=== PATIENT | male | born 1945 | race Hispanic/Latino ===

== ENCOUNTER 2022-05-14 20:27 | Observation (INO) | payer OTHER ==
--- OUTSIDE RECORDS SUMMARY | 2022-05-14 20:32 | XMS REPORT | Continuity of Care Document ---
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 22:43:30 113.399 kg Universi [facility] BMI 2019-11-17 22:43:30 35.87 kg/m2 [facility] Procedures Procedure Date / Time Performing Clinician Source Performed COVID-19 (ID NOW RAPID 2021-09-03 18:50:00 Drew Tovar [facility] TESTING) Medical Branch CONSENT/REFUSAL FOR 2021-09-03 17:16:42 Doctor Unassigned, No [facility] [place] [facility] Name [facility] Branch CONSENT/REFUSAL FOR 2021-01-03 15:00:34 Doctor Unassigned, No [facility] [place] [facility] Name [facility] EXTERNAL PROVIDER - ADC 2020-11-23 05:01:00 Doctor Unassigned, N o [facility] REFERRAL Name [facility] URINALYSIS 2019-11-18 00:09:00 Chintan Vargas o [facility] CT HEAD WO CONTRAST 2019-11-17 23:19:20 Chintan Vargas [facility] XR FEMUR 2 VW RIGHT 2019-11-17 23:09:59 Chintan Vargas [facility] XR HIPS 2 VW RIGHT 2019-11-17 23:09:59 Chintan Vargas y [facility] HB ABO GROUPING 2019-11-17 22:58:00 Chintan Vargas o f [facility] COMP. METABOLIC PANEL 2019-11-17 22:55:00 Chintan Vargas [facility] ([id number]) [facility] CBC WITH DIFFERENTIAL 2019-11-17 22:55:00 Chintan Vargas [facility] Encounters Start End Encounter Admission Attending Care Care Encounter Source Date/Time Date/Time Type Type Clinicians Facility Department ID 2021-09-07 2021-09-07 Outpatient R CHRISTIE [facility] [id number] Univers 12:24:53 23:59:00 JOSE DAVID bates [facility] 2021-09-07 2021-09-07 [facility] BURAK Valadez [id number] Univers 12:24:53 23:59:00 Encounter Erikashahida Ennis [id number] [facility] 4.2.7.2.686 Luis as [id number] [facility] 184 Josephine 2021-09-07 2021-09-07 Outpatient R [facility] [id number] -[id number] Univers 12:30:00 12:30:00 [id number] [facility] 2021-09-03 2021-09-03 [facility] [place], BURAK [id number] Univers 12:45:00 23:59:00 Encounter Rod EBER [id number] [facility] 4.2.7.2.686 Luis as [phone] [facility] 184 [address]ine 2021-09-03 2021-09-03 Emergency [facility] [id number] Univers 11:21:00 17:24:00 [facility] 2021-09-03 2021-09-03 Emergency [facility] [id number] Univers 11:21:00 17:24:00 Drew JORGE 350.1.13.10 i [facility] 4.2.7.2.686 [facility] [id number] [facility] 084 Branch 2021-06-21 2021-06-21 Outpatient KURTIS, [facility] [id number] -[id number] Univers 10:30:00 10:30:00 SENDIL [id number] [facility] 2021-06-21 2021-06-21 [facility] [id number] Univers 10:30:00 10:30:00 [facility] 2021-02-15 2021-02-15 Office [facility] [id number] Univers 10:02:49 10:56:56 Visit Sendil Shanon Jorge [id number] [facility] [place] [phone] [place] dic[place]al [address] [place] [address] 2021-02-15 2021-02-15 Outpatient R KURTIS [facility] [id number] -[id number] Univers 10:30:00 10:30:00 SENDIL [id number] ity [facility] 2021-02-15 2021-02-15 Out[facility] [id number] Univers 10:30:00 10:30:00 [facility] 2021-02-10 2021-02-10 Outpatient R KURTIS [facility] [id number] -[id number] Univers 14:00:00 14:00:00 SENDIL [id number] ity [facility] 2021-02-10 2021-02-10 Outpatient [facility] [id number] Univers 14:00:00 14:00:00 SENDIL ity [facility] 2021-01-12 2021-01-12 Outpatient R [facility] [id number] -[id number] Univers 08:00:00 08:00:00 SENDIL [id number] ity [facility] 2021-01-12 2021-01-12 Outpatient R [facility] [id number] Univers 08:00:00 08:00:00 [facility] 2021-01-03 2021-01-03 Office [facility] [id number] Univers 10:00:51 11:17:43 Visit Sendil Shanon Jorge [id number] [facility] [phone] Mn dical nal 9 [facility] 2021-01-03 2021-01-03 Outpatient R KURTIS [facility] [id number] -[id number] Univers 10:30:00 10:30:00 SENDIL [id number] ity [facility] 2021-01-03 2021-01-03 Outpatient R HULL [facility] [id number] Univers 10:30:00 10:30:00 SENDIL ity [facility] 2021-01-03 2021-01-03 Orders Doctor MELANY [id number] Univers 00:00:00 00:00:00 Only Unassigned, EBER [id number] [facility] [place] [facility] 4.2.7.2.686 Luis as [phone] [address] 2020-11-23 2020-11-23 Orders Doctor MELANY [id number] Univers 00:00:00 00:00:00 Only Unassigned, EBER 350.1.13.10 ity of [place] [facility] 4.2.7.2.686 Luis as [phone] [address] 2020-04-14 2020-04-14 Outpatient COH COH PDPFEIZ YQR COH 00:00:00 00:00:[id number] [facility] 2019-11-17 2019-11-17 Emergency X SINGER [facility] ERT [id number] Univers 17:38:39 20:20:00 CHINTAN bates [facility] 2019-11-17 2019-11-17 Emergency Jagdish Leija [facility] 1.2. [id number] Univers 17:38:39 20:20:00 Chintan Vargas 350.1.13.10 ity [facility] 4.2.7.2.686 [facility] [id number] [address] 2019-11-17 2019-11-17 Emergency Jagdish Leija [facility] 1.2. [id number] 17:38:39 20:20:00 Chintan Vargas 350.1.13.10 [place] 4.2.7.2.686 [place] [id number] [id number] Results Test Description Test Time Test Comments Results Result Comments Source HEMOGLOBIN A1c 2021-10-21 11:06:59 Test Item Value Reference Range Interpretation Comme nts HEMOGLOBIN A1c (test code = 54891) 5.4 % 4.2-5.6 CBC W/AUTO DIFF WITH [id number] 10:23:26 Test Item Value Reference Range Interpretation Comments WBC (test code = 12.9 K/UL 3.5-11.0 H 1001) RBC (test code = 4.23 M/UL 4.50-6.10 L 1002) HEMOGLOBIN (test code 13.1 G/DL 13.5-17.0 L = 1003) HEMATOCRIT (test code 38.0 % 40.0-51.0 L = 1004) MCV (test code = 89.8 fL 80.0-99.0 1005) MCH (test code = 31.0 PG 25.0-33.0 1006) MCHC (test code = 34.5 G/DL 31.0-36.0 1007) RDW (test code = 13.4 % 11.5-15.0 1038) NEUTROPHILS (test 68.0 % code = 1008) LYMPHOCYTES (test 23.6 % code = 1010) MONOCYTES (test code 5.6 % = 1011) EOSINOPHILS (test 1.8 % code = 1012) BASOPHILS (test code 0.5 % = 1013) IMMATURE GRANULOCYTES 0.5 % (test code = 1036) NUCLEATED RBCS (test 0.0 /100 WBC'S See_Comment [Aut omated code = 1065) message] The sy stem which generated this result transmitted reference range : 0.0. The refere nce range was not u sed to interpret th is result as normal/abnormal . PLATELET COUNT (test 253 K/UL 130-400 code = 1015) ABSOLUTE NEUTROPHILS 8.81 K/UL 1.50-7.50 H (test code = 1066) ABSOLUTE LYMPHOCYTES 3.05 K/UL 1.00-4.00 (test code = 1067) ABSOLUTE MONOCYTES 0.73 K/UL 0.20-1.00 (test code = 1068) ABSOLUTE EOSINOPHILS 0.23 K/UL 0.00-0.50 (test code = 1040) ABSOLUTE BASOPHILS 0.06 K/UL 0.00-0.20 (test code = 1069) ABS IMMATURE 0.06 K/UL 0.00-0.10 GRANULOCYTES (test code = 1020) ABS NUCLEATED RBCS 0.00 K/UL 0.00-0.11 (test code = 79079) LIPID [id number] 06:45:11 Test Item Value Reference Range Interpretation Comments CHOLESTEROL (test 144 MG/DL <200 code = 2210) TRIGLYCERIDES (test 95 MG/DL <150 code = 2232) HDL CHOLESTEROL (test 48 MG/DL >39 code = 2220) CALC LDL CHOL (test 78 MG/DL <100 NOTE: C ALCULATED LDL code = 2237) IS BASED ON EDWIGE-MORALES METHOD WHICHINCLUDES ADJUSTABLE TRIGLYCERIDE:VL DL CHOLESTEROL RAT IO.THIS FACTOR VARIES B Y MEASURED TRIGLY CERIDE AND NON-HDLCHOL ESTEROL CONCENTRATIONS WITH INCREASED CALCU LATED LDL SEENIN HIGH ER TRIGLYCERIDE OR LOWER NON-HDL SPECIME NS. FOR MOREINFORMATION , SEE CLIENT ANNOUNCE MENT AT [email or web address] LDL/HDL 1.63 RATIO <3.55 (test code = 2238) COMPREHENSIVE METABOLIC [id number] 06:45:11 Test Item Value Reference Range Interpretation Comments GLUCOSE (test code = 84 MG/DL 70-99 2216) BUN (test code = 7 MG/DL 8-23 L 2207) CREATININE (test 0.83 MG/DL 0.80-1.40 code = 2214) eGFR (2020 CKD-EPI) 91 >60 (test code = 95251) ML/MIN/1.73 CALC BUN/CREAT (test 8 RATIO 6-28 code = 2235) SODIUM (test code = 144 MEQ/L 315-803 8285) POTASSIUM (test code 4.2 MEQ/L 3.5-5.4 = 2227) CHLORIDE (test code 105 MEQ/L 95-107 = 221) CARBON DIOXIDE (test 27 MEQ/L 19-31 code = 2206) CALCIUM (test code = 9.2 MG/DL 8.5-10.5 2208) PROTEIN, TOTAL (test 7.0 G/DL 6.1-8.3 code = 222) ALBUMIN (test code = 4.3 G/DL 3.5-5.2 2200) CALC GLOBULIN (test 2.7 G/DL 1.9-3.7 code = 2240) CALC A/G RATIO (test 1.6 RATIO 1.0-2.6 code = 2234) BILIRUBIN, TOTAL 0.4 MG/DL See_Comment [Automated message] (test code = 2207) The syste m which generated this result transmitted ref erence range: <=1.2. T he reference range was not used to int erpret this result as normal/abnormal . ALKALINE PHOSPHATASE 89 U/L 40-125 (test code = 4) AST (test code = 17 U/L 9-50 2217) ALT (test code = 15 U/L 5-50 UNLESS OTH ERWISE 9) INDICATED, ALL TESTING PERFORM ED ATCLINICAL PATH OLOGY LABORATORIES, [facility]. [address] [place] [id number] [place] [address] DIRECTOR: DAGOBERTO SORIANO M.D. CLIA NUMBER [id number] CAP ACCREDITATION N O. [id number] SARS-CoV-2 (COVID-19), RT-PCR/[id number] 15:44:19 Test Item Value Reference Interpretation Comments Range SARS-CoV-2 POSITIVE SEE NOTE A SARS-CoV-2 RNA INTERPRETATION DETECTEDPosit ran results (test code = 39447) are kirsten cative of the presence of PRIYA S-CoV-2 RNA;clinical co rrelation with patient hi story and other diagnosticinfor mation is necessary to de termine patient infecti on status.Positive results do not rule out bacterial infection or co-infectionwit h other viruses. Positi ve and negative predic tive values oftestin g are highly dependen t on prevalence. SOURCE (test code = NOT SPECIFIED Note: [place] [address]) Antonia Augustina Alia l-Time RT-PCR. The exp ected result or refer ence range is NEGATIVE (No t Detected). For more information reg arding COVID-19 testin g to include clinicalinforma tion, methodology det ail, intended use, F DA authorization andrecommended fact sheets for nazanin ents or healthcare prov iders, see NewTest Announc ement: SARS-CoV-2 (COV ID-19) by NAAT at URL bel ow (note,fact shee ts are provided by met hod given in report:https:// [email or web address]/clinician [email or web address]/client-c ommunications/ Alternatively, see downloadable PD F fact sheet at:[email or web address]://[email or web address]. [email or web address] [email or web address] CR UNLESS OTHERWISE INDIC ATED, ALL TESTING PERFORM ED ATCLINICAL PATH OLOGY LABORATORIES, [place]. [address] [place] [address] LABORATORY DIRE CTOR: Hugh ARCEO CLIA NUMBER [id number] CAP ACCREDITATION N O. [id number] 00:58:00 Test Item Value Reference Range Interpretation Comments APPEARANCE (test code = Clear Clear 7047168344) COLOR (test code = Yellow Yellow 3264410967) PH (test code = 4.8-8.0 8802407227) SP GRAVITY (test code = 1.003-1.030 6049343147) GLU U QUAL (test code = Normal Normal 6687690738) BLOOD (test code = Negative Negative 7788176848) KETONES (test code = Negative Negative 0263777245) PROTEIN (test code = Negative Negative 2887-8) UROBILIN (test code = Normal Normal 7581967958) BILIRUBIN (test code = Negative Negative 5825617750) NITRITE (test code = Negative Negative 9849623901) LEUK CAROL (test code = Negative Negative 9124654421) RBC/HPF (test code = See_Comment [Autom ated message] 3239804756) The system [employer] generated this result transmitted ref erence range: 0 - 3 HP F. The reference range was not used to int erpret this result as normal/abnormal . WBC/HPF (test code = See_Comment [Autom ated message] 8587992729) The system [employer] generated this result transmitted ref erence range: 0 - 5 HP F. The reference range was not used to int erpret this result as normal/abnormal . BACTERIA (test code = Negative Negative 7935240336) MUCOUS (test code = Moderate Negative LPF A 9506831833) HYAL CAST (test code = See_Comment H [Aut omated message] 3232705961) The system [employer] generated this result transmitted ref erence range: <=2 LPF. The reference range was not used to int erpret this result as normal/abnormal . Lab Interpretation (test Abnormal code = 85808-7) [facility] (80025)2019-11-18 00:06:00 Test Item Value Reference Range Interpretation Comments NA (test code = 143 mmol/L 135-145 6360250425) K (test code = 4.1 mmol/L 3.5-5 1187932906) CL (test code = 107 mmol/L 98-108 5135780364) CO2 TOTAL (test code = 26 mmol/L 23-31 6625326540) AGAP (test code = 2-16 5831681565) BUN (test code = 14 mg/dL 7-23 2652528733) GLUCOSE (test code = 140 mg/dL 70-110 H 4964763025) CREATININE (test code = 0.82 mg/dL 0.6-1.25 5350814849) TOTAL BILI (test code = 0.3 mg/dL 0.1-1.5 1653460064) CALCIUM (test code = 10.2 mg/dL 8.6-10.6 1485708855) T PROTEIN (test code = 8.0 g/dL 6.3-8.2 0662375365) ALBUMIN (test code = 4.9 g/dL 3.5-5 4011430430) ALK PHOS (test code = 85 U/L 34-122 3245505980) ALTv (test code = 18 U/L 5-50 1742-6) AST(SGOT) (test code = 23 U/L 13-40 6765896544) eGFR Calculation mL/min/1.73m2 (Non-) (test code = 2664780762) eGFR Calculation mL/min/1.73m2 () (test code = 8605635021) RADHA (test code = RADHA) Association of Glomerular Filtration Rate (GFR) and Staging of Kidney Disease* + --+ --+ ------+| GFR (mL/min/1.73 m2) ?| With Kidney Damage ?| ?Without Kidney Damage+ --------+ --------+ +| ?>90 ?| ?Stage one ?| ? Normal ?+ ---+ ---+ -------+| ?60-89 ?| ?Stage two ?| ? Decreased GFR ? + --+ --+ ------+| ?30-59 ?| ?Stage three ?| ? Stage three ? + --+ --+ ------+| ?15-29 ?| ?Stage four ? | ? Stage four ?+ ---+ ---+ -------+| ?<15 (or dialysis) ? ?| ?Stage five ? | ? Stage five ?+ ---+ ---+ -------+ *Each stage assumes the associated GFR level has been in effect for at least three months. ?Stages 1 to 5, with or without kidney disease, indicate chronic kidney disease. Notes: Determination of stages one and two (with eGFR >59mL/min/1.73 m2) requires estimation of kidney damage for at least three months as defined by structural or functional abnormalities of the kidney, manifested by either:Pathological abnormalities or Markers of kidney damage (including abnormalities in the composition of the blood or urine or abnormalities in imaging tests). Lab Interpretation Abnormal (test code = 35517-9) [facility] Screen - ONCE [id number] 23:58:13 Test Item Value Reference Range Interpretation Comments ABO & RH (test code A Positive Performe d at [facility] = 20) Laboratory Serv [facility] Blood [facility]1 [address] [place], [place] [id number] Free: [phone] A No. [id number] IAT (test code = Negative Performed a t [facility] 1185) Laboratory [facility] Blood [facility]1 [address] [place], [place] [address]Toll Free: [phone] A No. [id number] [facility]way[facility] HIPS 2 VW [id number] 23:46:51No appreciable acute displaced fracture lines. RL: 6200 ICAL HISTORY:fal, trauma COMPARISON:None TECHNIQUE:2 views right hip, and 2 views right femur performed. FINDINGS:There are no appreciable fracture lines or subluxations. Gross anatomicalignment. No radiographic effusions. No periosteal reaction. No osseouserosions by radiograph. Total knee arthroplasty. [facility], Radiant Results Inft User - 11/17/2019 6:48 PM CDTCLINICAL HISTORY:fal, trauma COMPARISON:NoneTECHNIQUE:2 views right hip, and 2 views right femur performed.FINDINGS:There are no appreciable fracture lines or subluxations. Gross anatomicalignment. No radiographic effusions. No periosteal reaction. No osseouserosions by radiograph.Total knee arthroplasty.IMPRESSIONNo appreciable acute displaced fracture lines.RL: 6200 [facility] FEMUR 2 VW [id number] 23:46:51No appreciable acute displaced fracture lines. RL: 6200 ICAL HISTORY:fal, trauma COMPARISON:None TECHNIQUE:2 views right hip, and 2 views right femur performed. FINDINGS:There are no appreciable fracture lines or subluxations. Gross anatomicalignment. No radiographic effusions. No periosteal reaction. No osseouserosions by radiograph. Total knee arthroplasty. [facility], Radiant Results Inft User - 11/17/2019 6:47 PM CDTCLINICAL HISTORY:fal, trauma COMPARISON:NoneTECHNIQUE:2 views right hip, and 2 views right femur performed.FINDINGS:There are no appreciable fracture lines or subluxations. Gross anatomicalignment. No radiographic effusions. No periosteal reaction. No osseouserosions by radiograph.Total knee arthroplasty.IMPRESSIONNo appreciable acute displaced fracture lines.RL: 6200 [facility] HEAD WO [id number] 23:31:25No acute findings. HISTORY:Head trauma, minor, GCS>=13, low clinical risk, initial exam TECHNIQUE: Noncontrast head CT was performed. COMPARISON:None. FINDINGS: The ventricles and sulci are appropriate for patient's age. Multiple foci of ?low-attenuation are identified in the periventricular andsubcortical white matter, compatible with mild to moderate chronic smallvessel ischemic disease. There is no midline shift. The basal cisterns are preserved. No largevascular territory infarction, intracranial hemorrhage or mass effect isseen. The extracranial tissues demonstrate no acute findings. [facility], Radiant Results Inft User - 11/17/2019 6:32 PM CDTHISTORY:Head trauma, minor, GCS>=13, low clinical risk, initial exam TECHNIQUE: Noncontrast head CT was performed.COMPARISON:None.FINDINGS:The ventricles and sulci are appropriate for patient's age.Multiple foci of low-attenuation are identified in the periventricular andsubcortical white matter, compatible with mild to moderate chronic smallvessel ischemic disease.There is no midline shift. The basal cisterns are preserved. No largevascular territory infarction, intracranial hemorrhage or mass effect isseen.The extracranial tissues demonstrate noacute findings.IMPRESSIONNo acute findings.[facility] WITH [id number] 23:11:00 Test Item Value Reference Range Interpretation Comments WBC (test code = See_Comment H [Automated 8090-2) message] The sy stem which generated this result transmitted reference range : 4.20 - 10.70 10*3/?L. The reference range was not used to interpret this result as normal/abnormal . RBC (test code = See_Comment [Automated 789-8) message] The sy stem which generated this result transmitted reference range : 4.26 - 5.52 10*6/?L. The reference range was not used to interpret this result as normal/abnormal . HGB (test code = 14.5 g/dL 12.2-16.4 718-7) HCT (test code = 43.3 % 38.4-49.3 4544-3) MCV (test code = 91.7 fL 81.7-95.6 787-2) MCH (test code = 30.7 pg 26.1-32.7 785-6) MCHC (test code = 33.5 g/dL 31.2-35 786-4) RDW-SD (test code = 48.0 fL 38.5-51.6 02782-2) RDW-CV (test code = 14.1 % 12.1-15.4 788-0) PLT (test code = See_Comment [Automated 777-3) message] The sy stem which generated this result transmitted reference range : 150 - 328 10*3/ ?L. The reference r alison was not used to interpret this result as normal/abnormal . MPV (test code = 11.5 fL 9.8-13 68248-6) NRBC/100 WBC (test See_Comment [Automat ed code = 8903770098) message] The system which generated this result transmitted reference range : 0.0 - 10.0 /100 WBCs. The refer ence range was not u sed to interpret th is result as normal/abnormal . NRBC x10^3 (test code <0.01 See_Comment [Auto mated = 8050305678) message] The s ystem which generated this result transmitted reference range : 10*3/?L. The reference range was not used to interpret this result as normal/abnormal . GRAN MAT (NEUT) % 70.5 % (test code = 770-8) IMM GRAN % (test code 0.50 % = 6189199482) LYMPH % (test code = 19.6 % 736-9) MONO % (test code = 6.6 % 5905-5) EOS % (test code = 2.5 % 713-8) BASO % (test code = 0.3 % 706-2) GRAN MAT x10^3(ANC) 9.72 10*3/uL 1.99-6.95 H (test code = 8262301040) IMM GRAN x10^3 (test 0.07 10*3/uL 0-0.06 H code = 8904609075) LYMPH x10^3 (test code 2.71 10*3/uL 1.09-3.23 = 731-0) MONO x10^3 (test code 0.91 10*3/uL 0.36-1.02 = 742-7) EOS x10^3 (test code = 0.35 10*3/uL 0.06-0.53 711-2) BASO x10^3 (test code 0.04 10*3/uL 0.01-0.09 = 704-7) Lab Interpretation Abnormal (test code = 58933-9) [facility]wayCOMPREHENS[facility] METABOLIC [id number] 13:10:00 Test Item Value Reference Range Interpretation Comments SODIUM (test code = 139 mmol/L 136-145 N NA) POTASSIUM (test code = 4.3 mmol/L 3.5-5.1 N K) CHLORIDE (test code = 103.0 mmol/L 98-107 N CL) CARBON DIOXIDE (test 27.7 mmol/L 21-32 N code = CO2) GLUCOSE (test code = 139 mg/dL 70-110 H GLU) BLOOD UREA NITROGEN 13 mg/dL 7-18 N (test code = BUN) GLOMERULAR FILTRATION 85.1 >60 Unit o f measure: RATE (test code = GFR) mL/mi n/1.73 m5Ieqksgnlj Range:Healthy Adults >90 mL/min/1.73 m2 For Chronic Kidney Disease: Stage II Mild Decrease i n GFR 60-90 Stage III Moderate Decrea se in GFR 30-59 St age IV Severe Decre ase in GFR 15-29 St age V Kidney Failur e <15 CREATININE (test code 0.88 mg/dL 0.55-1.30 N = CREAT) TOTAL PROTEIN (test 7.4 g/dL 6.4-8.2 N code = PROT) ALBUMIN (test code = 3.8 g/dL 3.4-5.0 N ALB) GLOBULIN (test code = 3.6 g/dL 2.2-4.2 N GLOB) ALBUMIN/GLOBULIN RATIO 1.1 0.7-2.0 N (test code = A/G) CALCIUM (test code = 9.0 mg/dL 8.2-10.1 N CA) BILIRUBIN TOTAL (test 0.50 mg/dL 0.2-1.00 N code = BILT) SGOT/AST (test code = 20.0 U/L 15-37 N AST) SGPT/ALT (test code = 32.0 U/L 12-78 N Please note new ALT) normal range. ALKALINE PHOSPHATASE 97 U/L 46-116 N TOTAL (test code = ALKP) CBC W/AUTO [id number] 12:46:00 Test Item Value Reference Range Interpretation Comments WHITE BLOOD CELL (test code = WBC) 12.0 K/mm3 5.7-10.5 H RED BLOOD CELL (test code = RBC) 4.85 M/mm3 4.2-5.4 N HEMOGLOBIN (test code = HGB) 15.1 g/dL 12-16 N HEMATOCRIT (test code = HCT) 44.2 % 37-47 N MEAN CELL VOLUME (test code = MCV) 91 fL 80-98 N MEAN CELL HGB (test code = MCH) 31.1 pg 27-34 N MEAN CELL HGB CONCENTRATION (test 34.2 g/dL 30.8-34.1 H code = MCHC) RED CELL DISTRIBUTION WIDTH (test 13.6 % 11-16 N code = RDW) PLT (test code = PLT) 246 K/mm3 130-400 N MEAN PLATELET VOLUME (test code = 11.5 fL 8.9-12.1 N MPV) NEUTROPHIL % (test code = NT%) 66.4 % 45-70 N LYMPHOCYTE % (test code = LY%) 23.8 % 20-40 N MONOCYTE % (test code = MO%) 6.6 % 3-10 N EOSINOPHIL % (test code = EO%) 2.5 % 1-5 N BASOPHIL % (test code = BA%) 0.4 % 0.0-1.1 N NEUTROPHIL # (test code = NT#) 7.93 K/mm3 2.00-7.50 H LYMPHOCYTE # (test code = LY#) 2.84 K/mm3 1.50-4.00 N MONOCYTE # (test code = MO#) 0.79 K/mm3 0.2-0.8 N EOSINOPHIL # (test code = EO#) 0.30 K/mm3 0.04-0.4 N BASOPHIL # (test code = BA#) 0.05 K/mm3 0.02-0.10 N MANUAL DIFF REQUIRED (test code = NO MANUAL DIFF MDIFF) NUCLEATED RED BLOOD CELL (test 0 % 0-0 N code = NRBC)"
--- NOTE | 2022-05-14 22:32 | RAD REPORT ---
EXAM DESCRIPTION: RAD - Chest Single View - 05/14/2022 10:27 pm CLINICAL HISTORY: COUGH COMPARISON: Chest Pa And Lat (2 Views) dated 03/09/2019 FINDINGS: Lines: None. Lungs: No evidence of edema or pneumonia. Pleural: No significant pleural effusions or pneumothorax. Cardiac: The heart size is within normal limits. Mediastinum: Within normal limits. Bones: No acute fractures. Other: None IMPRESSION: No acute cardiopulmonary disease.
[2022-05-14 22:35] LABS: Absolute Lymphocytes (CBC) 1.8 K/uL (0.7-4.9); Hematocrit 42.4 % (39.6-49.0); Lymphocytes % 8.8 % (15.3-44.8); MCV 92.1 fL (80-100); MPV 10.2 fL (7.6-11.3)
[2022-05-14] MEDS ORDERED: CEFTRIAXONE 1000 MG/VIAL ONE (22:35)
[2022-05-14] MEDS ORDERED: NA CHLORIDE 0.9% 1,000 ML ONE (22:35)
[2022-05-14] MEDS ORDERED: FAMOTIDINE 20 MG/2 ML VIAL IV ONE (22:35)
[2022-05-14] MEDS ORDERED: ONDANSETRON 4 MG/2 ML VIAL ONE (22:35)
[2022-05-14 22:36] LABS: Protime INR 1.22
[2022-05-14 22:49] LABS: Albumin 3.1 g/dL (3.4-5.0); Bilirubin Direct 0.2 mg/dL (0-0.2); Bilirubin Total 0.7 mg/dL (0.2-1.0); Potassium 4.2 mmol/L (3.5-5.1); Protein, Total 7.3 g/dL (6.4-8.2); Troponin High Sensitivity 7.8 pg/mL (<58.9)
[2022-05-14 23:14] LABS: SARS-CoV-2 Antigen Rapid Res Negative (Negative)
[2022-05-15 00:07] LABS: Urine Blood Trace-intact (Negative); Urine Glucose Negative (Negative); Urine Protein 1+ (Negative)
[2022-05-15 00:45] LABS: Urine Mucus Slight /HPF (None Seen)
--- NOTE | 2022-05-15 00:46 | ER ---
Nurse's Notes [facility] Name: Ortega Haynes Age: 77 yrs Sex: Male : 1945 Arrival Date: 05/14/2022 Time: 21:16 Bed 4 Private MD: Diagnosis: Weakness;Fever, unspecified;Elevated white blood cell count;Streptococcal pharyngitis;Vomiting;Diarrhea, unspecified;Dehydration;UTI/ Urinary tract infection, site not specified;Duodenitis Presentation: 05/14 21:26 Chief complaint: Patient states: Pt reports fever, vomiting, diarrhea that began kb3 yesterday. Coronavirus screen: Vaccine status: Patient reports receiving the 2nd dose of the covid vaccine. Client denies travel out of the [place] in the last 14 days. diarrhea, fever, headache, nausea, vomiting. Ebola Screen: Patient negative for fever greater than or equal to 101.5 degrees Fahrenheit, and additional compatible Ebola Virus Disease symptoms Patient denies exposure to infectious person. Patient denies travel to an Ebola-affected area in the 21 days before illness onset. Initial Sepsis Screen: Does the patient meet any 2 criteria? No. Patient's initial sepsis screen is negative. Does the patient have a suspected source of infection? No. Patient's initial sepsis screen is negative. Risk Assessment: Do you want to hurt yourself or someone else? Patient reports no desire to harm self or others. Onset of symptoms was May 13, 2022. 21:26 Method Of Arrival: Ambulatory kb3 21:26 Acuity: TRENT 3 kb3 Triage Assessment: 21:27 General: Appears in no apparent distress. Behavior is calm, cooperative. kb3 23:56 GI: Reports nausea. aa9 Historical: - Allergies: 21:27 No Known Allergies; kb3 - Home Meds: 21:27 None [Active]; kb3 - PMHx: 21:27 None; kb3 - PSHx: 21:27 None; kb3 - Immunization history:: Adult Immunizations up to date, Client reports receiving the 2nd dose of the Covid vaccine, Last tetanus immunization: unknown. - Social history:: Smoking status: Patient reports the use of cigarette tobacco products, smokes one-half pack cigarettes per day. - Family history:: not pertinent. Screenin:56 Abuse screen: Denies threats or abuse. Denies injuries from another. Nutritional aa9 screening: No deficits noted. Tuberculosis screening: No symptoms or risk factors identified. Fall Risk None identified. Assessment: 23:55 Pain: Denies pain. GI: Abdomen is flat, non-distended. aa9 05/15 00:28 Reassessment: Patient and/or family updated on plan of care and expected duration. Pain vc1 level reassessed. Patient is alert, oriented x 3, equal unlabored respirations, skin warm/dry/pink. Patient states symptoms have not improved. 02:00 Reassessment: Patient and/or family updated on plan of care and expected duration. Pain aa9 level reassessed. Patient is alert, oriented x 3, equal unlabored respirations, skin warm/dry/pink. Patient denies pain at this time. 02:05 Reassessment: pt aware of need to admit. Understands treatment plan. will be aa9 transported to room 420 via wheelchair. Report called to receiving nurse. pt stable at this time. Vital Signs: 05/14 21:26 BP 153 / 78; Pulse 103; Resp 20; Temp 99.3; Pulse Ox 98% ; Weight 90.72 kg; Height 5 kb3 ft. 10 in. (177.80 cm); Pain 10/10; 23:54 BP 167 / 87; Pulse 83; Resp 16 S; Pulse Ox 97% on R/A; aa9 05/15 00:27 BP 171 / 88; Pulse 96; Resp 16; Pulse Ox 93% on R/A; vc1 01:43 BP 139 / 87; Pulse 85; Resp 16 S; Pulse Ox 98% on R/A; Pain 0/10; aa9 05/14 21:26 Body Mass Index 28.70 (90.72 kg, 177.80 cm) kb3 ED Course: 05/14 21:16 Patient arrived in ED. ja2 21:27 Triage completed. kb3 21:27 Arm band placed on. kb3 21:47 Jeff Judd MD is Attending Physician. cuauhtemoc 21:57 Inserted saline lock: 20 gauge in left antecubital area, using aseptic technique. Blood kb3 collected. 22:28 XRAY Chest (1 view) In Process Unspecified. EDMS 22:58 Shannon Astudillo, RN is Primary Nurse. aa9 22:58 SARS RAPID Sent. aa9 22:58 Strep Sent. aa9 23:38 CT Abd/Pelvis - Without Contrast In Process Unspecified. EDMS 23:55 Side rails up X2. Door closed. Warm blanket given. aa9 05/15 00:44 Carmelo James is Hospitalizing Provider. cuauhtemoc 02:01 No provider procedures requiring assistance completed. Patient admitted, IV remains in aa9 place. Administered Medications: 05/14 22:58 Drug: NS 0.9% 1000 ml Route: IV; Rate: 1 bolus; Site: left antecubital; aa9 05/15 01:42 Follow up: Response: No adverse reaction; IV Status: Completed infusion; IV Intake: aa9 980ml 05/14 22:58 Drug: Rocephin (cefTRIAXone) 1 grams Route: IV; Rate: per protocol; Site: left aa9 antecubital; 05/15 01:42 Follow up: Response: No adverse reaction; IV Status: Completed infusion; IV Intake: [id number] 05/14 22:58 Drug: Pepcid (famotidine) 20 mg Route: IVP; Site: left antecubital; aa9 05/15 01:43 Follow up: Response: No adverse reaction aa9 05/14 22:58 Drug: Zofran (Ondansetron) 4 mg Route: IVP; Site: left antecubital; aa9 05/15 01:43 Follow up: Response: No adverse reaction aa9 00:58 Drug: ProTONIX (pantoprazole) 40 mg Route: IVP; Site: left antecubital; 1 01:43 Follow up: Response: No adverse reaction aa9 Medication: 05/14 23:56 VIS not applicable for this client. aa9 Intake: 05/15 01:42 IV: 980ml; Total: 980ml. aa9 01:42 IV: 10ml; Total: 990ml. aa9 Outcome: 00:46 Decision to Hospitalize by Provider. cuauhtemoc 02:04 Admitted to Tele accompanied by nurse, via wheelchair, with chart, Report called to aaRashard Dorsey RN 02:04 Condition: stable 02:04 Instructed on the need for admit. 03:12 Patient left the ED. as6 Signatures: Dispatcher [employer] EDMS Jeff Judd MD MD cha Alexander, Jessica ja2 Slawson, Ashby, RN RN as6 Lizet Montes De Oca, RN RN vc1 Shannon Astudillo, RN RN aa9 Roselyn Love, RN RN kb3
--- NOTE | 2022-05-15 00:47 | EDPHYS ---
Physician Documentation [facility] Name: Ortega Haynes Age: 77 yrs Sex: Male : 1945 Arrival Date: 05/14/2022 Time: 21:16 Bed 4 Private MD: PANTERA Physician Jeff Judd HPI: 05/14 22:12 This 77 yrs old Male presents to ER via Ambulatory with complaints of cuauhtemoc Vomiting, Weakness. 22:12 The patient presents to the emergency department with nausea, vomiting, diarrhea, cuauhtemoc abdominal pain, of the right upper quadrant, left upper quadrant, right lower quadrant and left lower quadrant. Onset: The symptoms/episode began/occurred 2 day(s) ago. Possible causes: unknown. The symptoms are aggravated by nothing. The symptoms are alleviated by nothing. Associated signs and symptoms: The patient has no apparent associated signs or symptoms. Severity of symptoms: At their worst the symptoms were mild in the emergency department the symptoms are unchanged. The patient has not experienced similar symptoms in the past. Historical: - Allergies: 21:27 No Known Allergies; kb3 - Home Meds: 21:27 None [Active]; kb3 - PMHx: 21:27 None; kb3 - PSHx: 21:27 None; kb3 - Immunization history:: Adult Immunizations up to date, Client reports receiving the 2nd dose of the Covid vaccine, Last tetanus immunization: unknown. - Social history:: Smoking status: Patient reports the use of cigarette tobacco products, smokes one-half pack cigarettes per day. - Family history:: not pertinent. ROS: 22:12 Constitutional: Negative for fever, chills, and weight loss, Eyes: Negative for injury, cuauhtemoc pain, redness, and discharge, Neck: Negative for injury, pain, and swelling, Cardiovascular: Negative for chest pain, palpitations, and edema, Respiratory: Negative for shortness of breath, cough, wheezing, and pleuritic chest pain, Back: Negative for injury and pain, : Negative for injury, bleeding, discharge, and swelling, MS/Extremity: Negative for injury and deformity, Skin: Negative for injury, rash, and discoloration, Neuro: Negative for headache, weakness, numbness, tingling, and seizure, Psych: Negative for depression, anxiety, suicide ideation, homicidal ideation, and hallucinations, Allergy/Immunology: Negative for hives, rash, and allergies, Endocrine: Negative for neck swelling, polydipsia, polyuria, polyphagia, and marked weight changes, Hematologic/Lymphatic: Negative for swollen nodes, abnormal bleeding, and unusual bruising. 22:12 ENT: Positive for sore throat. 22:12 Abdomen/GI: Positive for abdominal pain, nausea and vomiting, diarrhea, abdominal cramps. Exam: 22:12 Constitutional: This is a well developed, well nourished patient who is awake, alert, cuauhtemoc and in no acute distress. Head/Face: Normocephalic, atraumatic. Eyes: Pupils equal round and reactive to light, extra-ocular motions intact. Lids and lashes normal. Conjunctiva and sclera are non-icteric and not injected. Cornea within normal limits. Periorbital areas with no swelling, redness, or edema. ENT: Nares patent. No nasal discharge, no septal abnormalities noted. Tympanic membranes are normal and external auditory canals are clear. Oropharynx with no redness, swelling, or masses, exudates, or evidence of obstruction, uvula midline. Mucous membranes moist. Neck: Trachea midline, no thyromegaly or masses palpated, and no cervical lymphadenopathy. Supple, full range of motion without nuchal rigidity, or vertebral point tenderness. No Meningismus. Chest/axilla: Normal chest wall appearance and motion. Nontender with no deformity. No lesions are appreciated. Cardiovascular: Regular rate and rhythm with a normal S1 and S2. No gallops, murmurs, or rubs. Normal PMI, no JVD. No pulse deficits. Respiratory: Lungs have equal breath sounds bilaterally, clear to auscultation and percussion. No rales, rhonchi or wheezes noted. No increased work of breathing, no retractions or nasal flaring. Abdomen/GI: Soft, non-tender, with normal bowel sounds. No distension or tympany. No guarding or rebound. No evidence of tenderness throughout. Back: No spinal tenderness. No costovertebral tenderness. Full range of motion. Male : Normal genitalia with no discharge or lesions. Skin: Warm, dry with normal turgor. Normal color with no rashes, no lesions, and no evidence of cellulitis. MS/ Extremity: Pulses equal, no cyanosis. Neurovascular intact. Full, normal range of motion. Neuro: Awake and alert, GCS 15, oriented to person, place, time, and situation. Cranial nerves II-XII grossly intact. Motor strength 5/5 in all extremities. Sensory grossly intact. Cerebellar exam normal. Normal gait. Psych: Awake, alert, with orientation to person, place and time. Behavior, mood, and affect are within normal limits. 23:04 ECG was reviewed by the Attending Physician. [facility] Vital Signs: 21:26 BP 153 / 78; Pulse 103; Resp 20; Temp 99.3; Pulse Ox 98% ; Weight 90.72 kg; Height 5 kb3 ft. 10 in. (177.80 cm); Pain 10/10; 23:54 BP 167 / 87; Pulse 83; Resp 16 S; Pulse Ox 97% on R/A; aa9 05/15 00:27 BP 171 / 88; Pulse 96; Resp 16; Pulse Ox 93% on R/A; vc1 01:43 BP 139 / 87; Pulse 85; Resp 16 S; Pulse Ox 98% on R/A; Pain 0/10; aa9 05/14 21:26 Body Mass Index 28.70 (90.72 kg, 177.80 cm) kb3 MDM: 05/14 21:47 Patient medically screened. [facility] 23:04 Differential diagnosis: Nonspecific abd pain, gastritis, cholecystitis, pancreatitis, cuauhtemoc appendicitis, diverticulitis, viral gastroenteritis, gastroenteritis. Data reviewed: vital signs, nurses notes, lab test result(s), EKG, radiologic studies, doppler, plain films. Data interpreted: court recording monitor: rate is 103 beats/min, rhythm is regular, Pulse oximetry: on room air is 98 %. Test interpretation: by ED physician or midlevel provider: ECG, plain radiologic studies. Counseling: I had a detailed discussion with the patient and/or guardian regarding: the historical points, exam findings, and any diagnostic results supporting the discharge/admit diagnosis, lab results, radiology results. 05/14 22:05 Order name: Basic Metabolic Panel; Complete Time: 23:37 [facility] 05/14 22:05 Order name: CBC with Diff; Complete Time: 23:37 [facility] 05/14 22:05 Order name: LFT's; Complete Time: 23:37 [facility] 05/14 22:05 Order name: Magnesium; Complete Time: 23:37 [facility] 05/14 22:05 Order name: NT PRO-BNP; Complete Time: 23:37 [facility] 05/14 22:05 Order name: PT-INR; Complete Time: 23:37 cuauhtemoc 05/14 22:05 Order name: Troponin HS; Complete Time: 23:37 [facility] 05/14 22:05 Order name: Lipase; Complete Time: 23:37 cuauhtemoc 05/14 22:05 Order name: Blood Culture Adult (2) 05/14 22:05 Order name: Lactate; Complete Time: 00:38 cuauhtemoc 05/14 22:05 Order name: Procalcitonin; Complete Time: 00:38 [facility] 05/14 22:05 Order name: SARS RAPID; Complete Time: 23:37 cuauhtemoc 05/14 22:11 Order name: Strep; Complete Time: 00:38 cuauhtemoc 05/15 00:07 Order name: Urine Dipstick-Ancillary; Complete Time: 00:38 EDMS 05/14 22:05 Order name: XRAY Chest (1 view); Complete Time: 23:37 [facility] 05/14 22:05 Order name: EKG; Complete Time: 22:06 [facility] 05/14 22:05 Order name: Cardiac monitoring; Complete Time: 22:23 [facility] 05/14 22:05 Order name: EKG - Nurse/Tech; Complete Time: 22:23 [facility] 05/14 22:05 Order name: IV Saline Lock; Complete Time: 22:23 [facility] 05/14 22:05 Order name: Labs collected and sent; Complete Time: 22:23 [facility] 05/14 22:05 Order name: O2 Per Protocol; Complete Time: 22:23 [facility] 05/14 22:05 Order name: O2 Sat Monitoring; Complete Time: 22:23 [facility] 05/14 22:10 Order name: CT Abd/Pelvis - Without Contrast [facility] 05/15 00:08 Order name: Urine Culture [facility] 05/15 00:08 Order name: Urine Microscopic Only; Complete Time: 00:57 [facility] 05/14 22:10 Order name: Urine Dipstick-Ancillary (obtain specimen); Complete Time: 00:17 cuauhtemoc EC:04 Rate is 92 beats/min. Rhythm is regular. QRS [place] is Normal. [place] interval is normal. QRS cuauhtemoc interval is normal. QT interval is normal. No Q waves. T waves are Normal. No ST changes noted. Clinical impression: NSR w/ Non-specific ST/T Changes and No evidence of ischemia. Interpreted by me. Reviewed by me. Administered Medications: 22:58 Drug: NS 0.9% 1000 ml Route: IV; Rate: 1 bolus; Site: left antecubital; aa9 05/15 01:42 Follow up: Response: No adverse reaction; IV Status: Completed infusion; IV Intake: aa9 980ml 05/14 22:58 Drug: Rocephin (cefTRIAXone) 1 grams Route: IV; Rate: per protocol; Site: left aa9 antecubital; 05/15 01:42 Follow up: Response: No adverse reaction; IV Status: Completed infusion; IV Intake: [id number] 05/14 22:58 Drug: Pepcid (famotidine) 20 mg Route: IVP; Site: left antecubital; aa9 05/15 01:43 Follow up: Response: No adverse reaction 05/14 22:58 Drug: Zofran (Ondansetron) 4 mg Route: IVP; Site: left antecubital; aa9 05/15 01:43 Follow up: Response: No adverse reaction 00:58 Drug: ProTONIX (pantoprazole) 40 mg Route: IVP; Site: left antecubital; [facility] 01:43 Follow up: Response: No adverse reaction aa9 Disposition Summary: 05/15/22 00:46 Hospitalization Ordered Hospitalization Status: Observation [facility] Provider: Carmelo James cha Location: Telemetry/[facility] (observation) cuauhtemoc Condition: Fair cuauhtemoc Problem: new cuauhtemoc Symptoms: have improved cuauhtemoc Bed/Room Type: Standard [facility] Room Assignment: 420(05/15/22 01:20) cg Diagnosis - Weakness cuauhtemoc - Fever, unspecified cuauhtemoc - Elevated white blood cell count cuauhtemoc - Streptococcal pharyngitis cuauhtemoc - Vomiting cuauhtemoc - Diarrhea, unspecified cuauhtemoc - Dehydration cuauhtemoc - UTI/ Urinary tract infection, site not specified cuauhtemoc - Duodenitis cuauhtemoc Discharge Instructions: - Discharge Summary Sheet cuauhtemoc - Food Choices to Help Relieve Diarrhea, Adult cuauhtemoc - Fever, Adult cuauhtemoc - Diarrhea, Adult, [id number] cuauhtemoc - Fever, Adult, [id number] cuauhtemoc - Vomiting, Adult cuauhtemoc Forms: - Medication Reconciliation Form cuauhtemoc - SBAR form cuauhtemoc Prescriptions: - Zofran 4 mg Oral Tablet - take 1 tablet by ORAL route every 12 hours As needed; 20 tablet; Refills: 0, cuauhtemoc Product Selection Permitted - promethazine 25 mg Oral Tablet - take 1 tablet by ORAL route every 6 hours As needed; 20 tablet; Refills: 0, cuauhtemoc Product Selection Permitted Signatures: Dispatcher [employer] Jeff Contreras MD MD cha Garcia, Cindy RN RN cg Lizet Montes De Oca RN RN vc1 Janine Root PA PA sb3 Shannon Astudillo RN RN aa9 Roselyn Love RN RN kb3 Corrections: (The following items were deleted from the chart) 01:20 00:46 cuauhtemoc
[2022-05-15] MEDS ORDERED: PANTOPRAZOLE 40 MG INJ ONE (01:04)
[2022-05-15] MEDS ORDERED: NA CHLORIDE 0.9% 50 ML ONE (01:04)
--- NOTE | 2022-05-15 01:18 | P.HP ---
Certification for Inpatient Patient admitted to: Observation With expected LOS: <2 Midnights Patient will require the following post-hospital care: None Practitioner: I am a practitioner with admitting privileges, knowledge of patient current condition, hospital course, and medical plan of care. Services: Services provided to patient in accordance with Admission requirements found in Title 42 Section 412.3 of the Code of Federal Regulations Patient History Date of Service: 05/15/22 Reason for admission: Enteritis History of Present Illness: Patient is a 77-year-old male with no medical history who presented to the ED with complaints of sore throat, nausea, vomiting, and diarrhea for 24 hours. He was tachycardic upon arrival to the ED. Lab significant for WBC 20, BUN 22, Pro-Thony 0.11. Strep A positive. CT abdomen pelvis showed duodenitis, cholelithiasis without cholecystitis, left renal benign-appearing cyst, nonobstructing right nephrolithiasis, diffuse colonic diverticulosis without diverticulitis, and prostatomegaly. Chest xray negative. He was started on Zofran, Pepcid, Rocephin, fluids, and Protonix in the ED. Upon my assessment, patient reports he is feeling slightly better. ED provider wishes admit patient for further evaluation and treatment. Home medications list reviewed: Yes (NA) - Past Medical/Surgical History Diabetic: No Past Medical History: Patient denies medical history -: Bilateral Knee Replacements Psychosocial/ Personal History: Patient lives at home alone. - Family History Family History: Reviewed- Non-Contributory - Social History Smoking Status: Current every day smoker Alcohol use: Yes CD- Drugs: No Caffeine use: Yes Place of Residence: Home Review of Systems Gastrointestinal: Nausea, Vomiting, Abdominal Pain, Diarrhea Physical Examination - Physical Exam General: Alert, In no apparent distress HEENT: Atraumatic, PERRLA, EOMI, Sclerae nonicteric Neck: Supple, 2+ carotid pulse no bruit, No LAD, Without JVD or thyroid abnormality Respiratory: Clear to auscultation bilaterally, Normal air movement Cardiovascular: Regular rate/rhythm, Normal S1 S2 Gastrointestinal: Normal bowel sounds, No tenderness Musculoskeletal: No tenderness Integumentary: No rashes Neurological: Normal speech, Normal strength at 5/5 x4 extr, Normal tone, Normal affect - Studies Laboratory Data (last 24 hrs) 05/14/22 22:09: PT 13.5 H, INR 1.22 05/14/22 22:09: WBC 19.90 H, Hgb 14.0, Hct 42.4, Plt Count 227 05/14/22 22:09: Sodium 141, Potassium 4.2, BUN 22 H, Creatinine 0.97, Glucose 131 H, Magnesium 2.0, Total Bilirubin 0.7, AST 10 L, ALT 18, Alkaline Phosphatase 83, Lipase 26 L Microbiology Data (last 24 hrs): 05/14/22 22:55 Throat Group A Streptococcus Rapid Screen - Final Assessment and Plan - Problems (Diagnosis) (1) Duodenitis Current Visit: Yes Status: Acute (2) Leukocytosis Current Visit: Yes Status: Acute Qualifiers: Leukocytosis type: unspecified Qualified Code(s): D72.829 - Elevated white blood cell count, unspecified (3) Hypertension Current Visit: Yes Status: Acute Qualifiers: Hypertension type: primary hypertension Qualified Code(s): I10 - Essential (primary) hypertension (4) Pharyngitis, streptococcal, acute Current Visit: Yes Status: Acute - Plan -Clear liquid diet, advance as tolerated -NS at 100 cc/hr -Monitor white count. Blood and urine cultures obtained. -Zosyn for duodenitis and leukocytosis -Antiemetics PRN -BP has been borderline high, denies history of HTN. Hydralazine PRN. -Monitor and replete electrolytes per protocol -Reconcile and continue home medications -Lovenox for VTE ppx -Full code Discharge Plan: Home Plan to discharge in: 24 Hours - Advance Directives Does patient have a Living Will: No Does patient have a Durable POA for Healthcare: No - Code Status/Comfort Care Code Status Assessed: Yes (Full) Critical Care: No Time Spent Managing Pts Care (In Minutes): 50
[2022-05-15] MEDS ORDERED: ACETAMINOPHEN 500 MG TAB PO PRN (03:18)
[2022-05-15] MEDS ORDERED: ONDANSETRON 4 MG/2 ML VIAL IV PRN (03:18)
[2022-05-15] MEDS ORDERED: NA CHLORIDE 0.9% 1,000 ML IV SCH (03:18)
[2022-05-15] MEDS ORDERED: HYDRALAZINE HCL 20 MG/ML VIAL IV PRN (03:18)
[2022-05-15 04:43] LABS: Hematocrit 37.7 % (39.6-49.0); Lymphocytes % 12.8 % (15.3-44.8); MCV 92.7 fL (80-100); MPV 10.1 fL (7.6-11.3); RBC Red Blood Cell Count 4.07 M/uL (4.33-5.43)
[2022-05-15 05:01] LABS: Magnesium 1.9 mg/dL (1.8-2.4); Potassium 4.1 mmol/L (3.5-5.1)
[2022-05-15 06:22] VITALS: O2SAT 98
--- NOTE | 2022-05-15 06:42 | RAD REPORT ---
EXAM DESCRIPTION: CT - Abdomen Pelvis Wo Contrast - 05/14/2022 11:36 pm CLINICAL HISTORY: Abdominal pain, acute, nonlocalized COMPARISON: No comparisons TECHNIQUE: Axial [address] imaging of the abdomen and pelvis was performed without IV contrast. No IV contrast was given because of allergy, abnormal renal function, patient refusal or physician re quest. No oral contrast administered. All CT scans are performed using dose optimization technique as appropriate and may include automated exposure control or mA/KV adjustment according to patient size. FINDINGS: No suspicious findings in the lung bases. The liver, spleen and pancreas show no suspicious findings on non-contrast imaging. Gallbladder conta ins at least 3 large gallstones. Gallbladder is not dilated. Wall is not clearly thickened or [place] us. The biliary tree is not dilated. No hydronephrosis or suspicious renal mass. A 5.3 centimeter cyst is present lower pole left kidney. No significant adrenal finding. Isodense renal masses and pyelonephritis cannot be excluded in the ab sence of IV contrast. The urinary bladder is without significant finding. GE junction is unremarkable. Stomach is distended and filled with fluid, air and a small amount of fo od material. Duodenal C-loop is prominent. Distal duodenum is normal in diameter. Remainder of the sm all bowel is normal in diameter as well. The appendix is normal. There is moderate stool volume filli ng but not dilating the entirety of the colon. Sigmoid diverticulosis is present. Less prominent dive rticulosis elsewhere in the colon. Primary colon process is not seen. No free air, free fluid or inflammatory stranding. No mass or bulky lymphadenopathy. Fat extends in to the origin of each inguinal canal. Disc and bone degenerative changes are present both prominent L5-S1. No pathologic process. IMPRESSION: Dilated fluid-filled stomach without gross evidence of an obstructing mass. Duodenum is prominent in the C-loop. Gastroparesis related to infectious enteritis would be primary consideration in the acute setting. Ga stro paresis from diabetes or other systemic process possible as well. Occult obstructing mass is not excluded. Multi stone cholelithiasis without acute cholecystitis suspected. No free air or other surgically emergent finding. Full assessment is limited is the absence of IV contrast.
[2022-05-15 08:38] VITALS: BP 166/65; TEMP 98.3
[2022-05-15] MEDS ORDERED: ENOXAPARIN 40 MG/0.4 ML SQ SCH (09:00)
[2022-05-15] MEDS ORDERED: PIPER TAZO 3.375 GM in NA CHLORIDE 0.9% 100 ML IV SCH (09:00)
[2022-05-15] MEDS ORDERED: PNEUMOCOCCAL VACCINE 0.5 ML IMVAC ONE (10:00)
--- NOTE | 2022-05-15 11:01 | P.DS ---
Admission Date: 05/15/22 Discharge Date: 05/15/22 Disposition: ROUTINE DISCHARGE Discharge Condition: FAIR Reason for Admission: Enteritis - Problems (1) Duodenitis Status: Acute (2) Hypertension Status: Acute Qualifiers: Hypertension type: primary hypertension Qualified Code(s): I10 - Essential (primary) hypertension (3) Leukocytosis Status: Acute Qualifiers: Leukocytosis type: unspecified Qualified Code(s): D72.829 - Elevated white blood cell count, unspecified (4) Pharyngitis, streptococcal, acute Status: Acute Brief History of Present Illness: Patient is a 77-year-old male with no medical history who presented to the ED with complaints of sore throat, nausea, vomiting, and diarrhea for 24 hours. He was tachycardic upon arrival to the ED. Lab significant for WBC 20, BUN 22, Pro-Thony 0.11. Strep A positive. CT abdomen pelvis showed duodenitis, cholelithiasis without cholecystitis, left renal benign-appearing cyst, nonobs tructing right nephrolithiasis, diffuse colonic diverticulosis without diverticulitis, and prostatomegaly. Chest xray negative. He was started on Zofran, Pepcid, Rocephin, fluids, and Protonix in the ED. Patient was admitted for further management. Hospital Course: Patient placed on observation on the medical floor and treated with IV Zosyn. His leukocytosis improved. Patient's symptoms significantly improved. His odynophagia improved and he tolerated diet advancement. Vitals have been stable. Patient is deemed stable for discharge. He is prescribed Augmentin to continue treatment for a Strept A pharyngitis and possible duodenitis. Vital Signs/Physical Exam: Temp Pulse Resp BP Pulse Ox 98.3 F 79 16 166/65 H 95 05/15/22 08:00 05/15/22 08:00 05/15/22 08:00 05/15/22 08:00 05/15/22 08:00 General: Alert, In no apparent distress, Oriented x3 HEENT: Mucous membr. moist/pink Neck: Supple, JVD not distended Respiratory: Clear to auscultation bilaterally, Normal air movement Cardiovascular: No edema, Regular rate/rhythm, Normal S1 S2, No murmurs Gastrointestinal: Normal bowel sounds, Soft and benign, Non-distended, No tenderness Musculoskeletal: No clubbing, No tenderness Integumentary: No rashes Neurological: Normal strength at 5/5 x4 extr Laboratory Data at Discharge: WBC 15.50 K/uL (4.3-10.9) H D 05/15/22 04:06 Hgb 12.6 g/dL (13.6-17.9) L 05/15/22 04:06 Hct 37.7 % (39.6-49.0) L 05/15/22 04:06 Plt Count 198 K/uL (152-406) 05/15/22 04:06 PT 13.5 SECONDS (9.5-12.5) H 05/14/22 22:09 INR 1.22 05/14/22 22:09 Sodium 141 mmol/L (136-145) 05/15/22 04:06 Potassium 4.1 mmol/L (3.5-5.1) 05/15/22 04:06 BUN 20 mg/dL (7-18) H 05/15/22 04:06 Creatinine 0.72 mg/dL (0.55-1.3) 05/15/22 04:06 Glucose 113 mg/dL (74-106) H 05/15/22 04:06 Magnesium 1.9 mg/dL (1.8-2.4) 05/15/22 04:06 Total Bilirubin 0.7 mg/dL (0.2-1.0) 05/14/22 22:09 AST 10 U/L (15-37) L 05/14/22 22:09 ALT 18 U/L (12-78) 05/14/22 22:09 Alkaline Phosphatase 83 U/L (45-117) 05/14/22 22:09 Lipase 26 U/L (73-393) L 05/14/22 22:09 Home Medications: Amox/Clavulanate [Augmentin 875-125 Tab] 1 each PO BID #14 tab 05/15/22 Benzocaine/Menthol [Cepacol Sore Throat Lozenge] 1 each MM Q4H PRN #30 lozenge 05/15/22 New Medications: Amox/Clavulanate [Augmentin 875-125 Tab] 1 each PO BID #14 tab Benzocaine/Menthol [Cepacol Sore Throat Lozenge] 1 each MM Q4H PRN #30 lozenge PRN Reason: Sore Throat Diet: AHA Activity: Ad bradly Followup: NONE,NONE [Primary Care Provider] - 1 Week
--- NOTE | 2022-05-15 14:31 | EKG ---
Test Date: 2022-05-14 Test Time: 22:31:44 [employer]: TIARA MEASUREMENT RESULTS: Intervals: Rate: 92 WA: 142 QRSD: 80 QT: 362 QTc: 447 [place]: P: 33 WA: 142 QRS: 19 T: -3 INTERPRETIVE STATEMENTS: Normal sinus rhythm Inferior infarct, age undetermined Abnormal ECG Compared to ECG 09/22/1999 18:15:00 Myocardial infarct finding now present Electronically Signed On 05-15-22 14:29:38 CDT by Phill Presley
== END 2022-05-15 14:19 | disposition home or self-care (01) ==
LOC: ER 20:27 → ERHOLD 05-15 01:13 → 4TH 05-15 01:42
PROVIDERS: ADMIT Internal Medicine; ATTEND Internal Medicine
DX: K29.80 Duodenitis without bleeding (principal); N39.0 Urinary tract infection, site not specified; J02.0 Streptococcal pharyngitis; R00.0 Tachycardia, unspecified; K80.20 Calculus of gallbladder without cholecystitis without obstruction; N28.1 Cyst of kidney, acquired; N20.0 Calculus of kidney; K57.30 Diverticulosis of large intestine without perforation or abscess without bleeding; F17.200 Nicotine dependence, unspecified, uncomplicated; E86.0 Dehydration
CPT/HCPCS: 96365; 93005; 87040 ×2; 87088; 85025 ×2; 87086; 80048 ×2; 36415; 83735 ×2; 85610; 80076; 87081; 83605; 84484; 83690; 84145; 83880; 74176; 71045; 96375; 99285; 96366; 87811; J0360; J2543; C9113; J1650; J7030 ×2; J2405; G0378 ×2; 81003; 81015